=== PATIENT | female | born 2000 | race Caucasian/White ===

== ENCOUNTER → 2020-01-23 | Outpatient (CLI) | payer MEDICAID ==
--- NOTE | 2020-01-23 15:48 | Diagnostic Imaging Report ---
PROCEDURE: US OB SINGLE FETUS <14 WKS. TECHNIQUE: Multiple Real-time grayscale images were obtained over the gravid uterus in various projections. INDICATION: dating. FINDINGS: There is an intrauterine gestational sac containing a pole. The crown-rump length measurement is 7.5 cm, consistent with 13 weeks 5 days gestation. The heart rate was recorded at 163 BPM. No paul-gestational sac hemorrhage is identified. The maternal adnexa are unremarkable. The ovaries are not visualized. No adnexal mass or free fluid is seen. IMPRESSION: Single live IUP of 13 weeks 5 days gestational age. The estimated date of confinement sonographically is 07/25/2020. Dictated by: Dictated on workstation # [id number]
== END ==
LOC: RAD 13:22
PROVIDERS: ATTEND Family Medicine
DX: Z36.9 Encounter for antenatal screening, unspecified (principal); Z3A.13 13 weeks gestation of pregnancy
CPT/HCPCS: 76801

== ENCOUNTER → 2020-02-29 | Outpatient (CLI) | payer MEDICAID ==
--- NOTE | 2020-02-29 15:34 | Diagnostic Imaging Report ---
INDICATION: survey. TECHNIQUE: Multiple real-time grayscale images were obtained over the gravid uterus. COMPARISON: 01/23/2020. FINDINGS: This is single live fetus in a transverse presentation, head to maternal left. heart rate was recorded at 149 bpm. Placenta is anterior. Amniotic fluid volume is normal. Cervical length is 4.2 cm. survey shows kidneys, bladder and stomach to be unremarkable. brain is unremarkable. There is a four-chamber heart. There is a three-vessel cord with normal insertion. spine is unremarkable. Biometrical measurements are as follows: Biparietal 4.16 cm, age 18 weeks 5 days. Head circumference 15.83 cm, age 18 weeks 5 days. Abdominal circumference 14.16 cm, age 19 weeks 4 days. Femur length 3.04 cm, age 19 weeks 3 days. Sonographic estimate age: 19 weeks 1 days. Sonographic estimated date of delivery: 07/24/2020. Estimated Weight: 288 gm (+/- 42 gm). LMP percentile: 76%. heart rate: 149 beats per minute. number: 1 of 1. IMPRESSION: Single live IUP approximately 19 weeks gestational age showing normal interval growth when compared to prior exam. No complicating features are detected. Dictated by: Dictated on workstation # [id number]
== END ==
LOC: RAD 12:59
PROVIDERS: ATTEND Family Medicine
DX: Z36.9 Encounter for antenatal screening, unspecified (principal); Z3A.19 19 weeks gestation of pregnancy
CPT/HCPCS: 76805

== ENCOUNTER → 2020-04-10 | Outpatient (CLI) | payer MEDICAID ==
[2020-04-10 12:25] LABS: HEMATOCRIT 37 % (35-52); MEAN CORPUSCULAR HEMOGLOBIN 31 PG (25-34); MEAN CORPUSCULAR VOLUME 89 FL (80-99); WHITE BLOOD COUNT 13.5 10^3/uL (4.3-11.0)
[2020-04-10 12:26] LABS: BASOPHILS % (AUTO) 0 % (0-10); EOSINOPHILS # (AUTO) 0.2 10^3/uL (0.0-0.3); EOSINOPHILS % (AUTO) 1 % (0-10); LYMPHOCYTES % (AUTO) 15 % (12-44); MEAN CORPUSCULAR HGB CONC 35 G/DL (32-36); MEAN PLATELET VOLUME 9.4 FL (7.4-10.4); MONOCYTES # (AUTO) 0.7 X 10^3 (0.0-1.0); MONOCYTES % (AUTO) 5 % (0-12); NEUTROPHILS # (AUTO) 10.6 X 10^3 (1.8-7.8); NEUTROPHILS % (AUTO) 79 % (42-75); PLATELET COUNT 197 10^3/uL (130-400)
== END ==
LOC: LAB FS 11:55
PROVIDERS: ATTEND Family Medicine
DX: R42 Dizziness and giddiness (principal)
CPT/HCPCS: 36415; 84443; 85025

== ENCOUNTER 2020-07-23 13:56 | Inpatient (IN) | payer MEDICAID ==
[2020-07-23] VITALS (38 sets, daily range): BP systolic 117–167; BP diastolic 65–97
[~2020-07-23] VITALS: Ht 157.5 cm; Wt 87.0 kg
--- NOTE | 2020-07-23 13:47 | NUR ---
KALEB PEDRAZA presented to unit via AMBULATORY from ED, accompanied by S/O , with c/o CTXS . KALEB PEDRAZA weighed, gowned, voided, and to bed. EFHM and TOCO applied, VS taken. KALEB PEDRAZA oriented to bed controls, call light, TV, heat, and A/C controls.
[2020-07-23 14:33] LABS: BILIRUBIN,URINE NEGATIVE (NEGATIVE); CLARITY,URINE CLEAR; COLOR,URINE YELLOW; GLUCOSE, URINE (UA) NEGATIVE (NEGATIVE); KETONES,URINE NEGATIVE (NEGATIVE); LEUKOCYTE ESTERASE ,URINE NEGATIVE (NEGATIVE); NITRITE,URINE NEGATIVE (NEGATIVE); PROTEIN,URINE 3+ (NEGATIVE)
[2020-07-23 14:39] LABS: BACTERIA,URINE NEGATIVE /HPF
[2020-07-23] MEDS ORDERED: D5 LR IV SOLUTION 1,000 ML IV SCH (14:43)
[2020-07-23] MEDS ORDERED: AMPICILLIN FOR IV USE 2,000 MG in WATER (STERILE) FOR INJECTION 14.8 ML IV SCH (14:43)
[2020-07-23] MEDS ORDERED: MINERAL OIL CONCENTRATE 99.9% 15 ML UDC TOP PRN (14:45)
[2020-07-23 15:41] LABS: BASOPHILS % (AUTO) 0 % (0-10); EOSINOPHILS % (AUTO) 0 % (0-10); HEMATOCRIT 35 % (35-52); HEMOGLOBIN 11.4 g/dL (11.5-16.0); LYMPHOCYTES # (AUTO) 2.4 10^3/uL (1.0-4.0); LYMPHOCYTES % (AUTO) 16 % (12-44); MEAN CORPUSCULAR HEMOGLOBIN 26 pg (25-34); MEAN CORPUSCULAR HGB CONC 32 g/dL (32-36); MEAN CORPUSCULAR VOLUME 81 fL (80-99); MEAN PLATELET VOLUME 10.7 fL (9.0-12.2); MONOCYTES # (AUTO) 0.7 10^3/uL (0.0-1.0); MONOCYTES % (AUTO) 5 % (0-12); NEUTROPHILS # (AUTO) 11.9 10^3/uL (1.8-7.8); NEUTROPHILS % (AUTO) 79 % (42-75); PLATELET COUNT 277 10^3/uL (130-400); WHITE BLOOD COUNT 15.1 10^3/uL (4.3-11.0)
[2020-07-23] MEDS ORDERED: fentaNYL 2 mcg/ml BUPIVA 0.125 100 ML ONE (16:47)
[2020-07-23] MEDS ORDERED: LACTATED RINGERS 1,000 ML IV SCH (17:10)
[2020-07-23] MEDS ORDERED: diphenhydrAMINE 50 MG/ML INJ (BENADRYL) IV PRN (17:15)
[2020-07-23] MEDS ORDERED: EPIDURAL (fentaNYL 2 MCG/ML BUPIVA 0.125%)100 ML BAG EPI SCH (17:15)
[2020-07-23] MEDS ORDERED: NALOXONE 0.4 MG/ML 1 ML (NARCAN) VIAL IV PRN ×2 (17:15)
[2020-07-23] MEDS ORDERED: ONDANSETRON 4 MG/2 ML (SDV) Z0FRAN IV PRN (17:15)
[2020-07-23] MEDS ORDERED: METOCLOPRAMIDE INJ 10 MG/2 ML (REGLAN) IV PRN (17:15)
[2020-07-23] MEDS ORDERED: OXYTOCIN PRE-MIX DRIP 500 ML IV SCH ×2 (18:50→21:39)
--- NOTE | 2020-07-23 18:50 | History & Physical-OB ---
OB - Chief Complaint & HPI Date/Time Date of Admission: Date of Admission: Jul 23, 2020 at 14:36 Date seen by a Provider: Jul 23, 2020 Time Seen by a Provider: 18:30 Chief Complaint/History OB-Reason for Admission/Chief: Onset of Labor Hx : 2 Hx Para: 1 Expected Date of Delivery: Jul 26, 2020 Gestational Age in Weeks: 39 Gestational Age in Days: 4 Admission Nurse Assessment Rev: Yes Allergies and Home Medications Allergies Coded Allergies: No Known Drug Allergies (Unverified , 07/23/20) Patient Home Medication List Home Medication List Reviewed: Yes OB - History Hx of Present Care: Yes Ultrasounds: Normal mid trimester US Obstetrical Complications: None Medical Complications: None Obstetrical History Hx : 2 Hx Para: 1 Delivery History Adverse Rxn to Tranfusion: No Patient Past Medical History previously healthy Social History/Family History HIV/AIDS: No Sexually Transmitted Disease: No Alcohol Use: Denies Use Recreational Drug Use: No OB - Admission Exam Physical Exam Vitals: Vital Signs 07/23/20 15:24 Temp 36.6 Pulse 83 Resp 18 Pulse Ox 98 O2 Delivery Room Air HEENT: NCAT Heart: Rhythm Normal Lungs: Clear Abdomen: Gravid Extremities: Normal Reflexes: Normal Cervical Dilatation: 8cm Effacement: 100% Station: -2 Membranes: Ruptured Amniotic Fluid: Clear Heart Rate: 130's Accelerations: Accelerations Present Decelerations: No Decelerations Short Term Variability: Present Flying Instructor Variability: Average (6-25) Contractions on Admission: < 5 Minutes Apart Labs Laboratory Tests Test 07/23/20 13:50 07/23/20 15:00 Range/Units Urine Color YELLOW Urine Clarity CLEAR Urine pH 7.0 5-9 Urine Specific [place] 1.020 1.016-1.022 Urine Protein 3+ H NEGATIVE Urine Glucose (UA) NEGATIVE NEGATIVE Urine Ketones NEGATIVE NEGATIVE Urine Nitrite NEGATIVE NEGATIVE Urine Bilirubin NEGATIVE NEGATIVE Urine Urobilinogen 0.2 < = 1.0 MG/DL Urine Leukocyte Esterase NEGATIVE NEGATIVE Urine RBC (Auto) 1+ H NEGATIVE Urine RBC NONE /HPF Urine WBC NONE /HPF Urine Squamous Epithelial Cells NONE /HPF Urine Crystals NONE /LPF Urine Bacteria NEGATIVE /HPF Urine Casts NONE /LPF Urine Mucus NEGATIVE /LPF Urine Culture Indicated NO White Blood Count 15.1 H 4.3-11.0 10^3/uL Red Blood Count 4.36 3.80-5.11 10^6/uL Hemoglobin 11.4 L 11.5-16.0 g/dL Hematocrit 35 35-52 % Mean Corpuscular Volume 81 80-99 fL Mean Corpuscular Hemoglobin 26 25-34 pg Mean Corpuscular Hemoglobin Concent 32 32-36 g/dL Red Cell Distribution Width 13.0 10.0-14.5 % Platelet Count 277 130-400 10^3/uL Mean Platelet Volume 10.7 9.0-12.2 fL Immature Granulocyte % (Auto) 1 % Neutrophils (%) (Auto) 79 H 42-75 % Lymphocytes (%) (Auto) 16 12-44 % Monocytes (%) (Auto) 5 0-12 % Eosinophils (%) (Auto) 0 0-10 % Basophils (%) (Auto) 0 0-10 % Neutrophils # (Auto) 11.9 H 1.8-7.8 10^3/uL Lymphocytes # (Auto) 2.4 1.0-4.0 10^3/uL Monocytes # (Auto) 0.7 0.0-1.0 10^3/uL Eosinophils # (Auto) 0.0 0.0-0.3 10^3/uL Basophils # (Auto) 0.0 0.0-0.1 10^3/uL Immature Granulocyte # (Auto) 0.1 0.0-0.1 10^3/uL OB - Assessment/Plan/Diagnosis Assessment Assessment: active labor Admission Dx Labor at 39 4/7 wga. GBS positive. Admission Status: Inpatient Order (span 2 midnights) Reason for Inpatient Admission: Labor. Plan Plan: Expectant Management Induction Method: AROM Other Plan Epidural for pain. AROM clear fluid. Ampicillin for GBS. HAILEY FOUNTAIN MD Jul 23, 2020 18:50
[2020-07-23] MEDS: AMPICILLIN FOR IV USE 1,000 MG in WATER (STERILE) FOR INJECTION 7.4 ML IV SCH ×2 (18:51→23:06)
[2020-07-23] MEDS ORDERED: WITCH HAZEL(TUCKS) 40 EA JAR TOP PRN (19:00)
[2020-07-23] MEDS ORDERED: MEASLES,MUMPS,RUBELLA 1 EA INJ SQ ONE (19:00)
[2020-07-23] MEDS ORDERED: BENZOCAINE/MENTHOL (DERMOPLAST) 60 ML CAN TP PRN (19:00)
[2020-07-23] MEDS ORDERED: TETANUS,DIPTH,PERTUSS P/F (BOOSTRIX) 0.5 ML VIAL IM ONE (19:00)
[2020-07-23] MEDS ORDERED: CATHETER FLUSH 10 ML SYR IV SCH ×2 (22:00)
[2020-07-23] MEDS ORDERED: LIDOCAINE/EPI 2% 1:200,00 (XYLOCAINE) 10 ML VIAL ONE (23:46)
[2020-07-24] VITALS (15 sets, daily range): BP systolic 109–146; BP diastolic 62–86
--- NOTE | 2020-07-24 | NUR ---
0000: Pericare provided to patient. New pads placed under her. Fundus massaged. Fundus one under umbilicus. No active bleeding or clots noted. Pt. taken out of stirrups. 0015: Fundus massaged. Fundus one under umbilicus. Minimal bleeding and no clots noted. 0030: Fundus massaged. Fundus one under umbilicus. Minimal bleeding and no clots noted. 0045: Fundus massaged. Fundus at umbilicus. Moderate bleeding and no clots noted. 0100: Fundus massaged. Fundus at umbilicus. Moderate bleeding and no clots noted. 0115: Fundus massaged. Fundus at umbilicus. Minimal bleeding and no clots noted. 0145: Fundus massaged. Fundus at umbilicus. Minimal bleeding and no clots noted.
--- NOTE | 2020-07-24 00:05 | OB Labor & Delivery Record ---
Vag Delivery Note Vag Delivery Note Date of Delivery: 07/23/20 Preoperative Diagnosis: Ruby Braxton is a (19 /Para 2 / 1, Gestational Age (wks)39with [4 days] Postoperative Diagnosis: Same Surgeon: HAILEY FOUNTAIN Project Administrator: [none] Anesthesia: [epidural] Delivery Type: [] Findings: [] Viable [male] infant, apgars [9/10], weight [9 pounds 0 ounces] Lacerations: Intact placenta with 3 vessel cord. No nuchal cord, body cord or shoulder dystocia Estimated Blood Loss: [250] ml Complications: None Condition: Stable Description of Procedure: The patient is a 19 year old female who presented [in labor]. She was admitted and informed consent was obtained. Her labor course was remarkable for [nothing] She progressed to complete dilatation and began to push. She was then set up for delivery. The 's head was delivered atraumatically in the [OA] position. The shoulders and remainder of the infant's body were then delivered without difficulty. Upon delivery, the head was held below the level of the perineum and the mouth and nares were bulb suctioned. The cord was doubly clamped and cut after 60 seconds on maternal abdomen by father of the baby. An intact placenta with 3-vessel cord delivered via [place] and there was found to be minimal bleeding.~ Vigorous fundal massage was performed and the fundus was found to be firm. IV oxytocin was given. Examination of the vagina and perineum revealed a [2nd degree perineal] laceration repaired in the usual fashion with 3-0 vicryl suture. Following the repair, sponge, instrument and needle counts were correct. Mom and baby were both in stable condition in the labor suite. Vitals - Labs Vital Signs - I&O Vital Signs Date Time Temp Pulse Resp B/P (MAP) Pulse Ox O2 Delivery O2 Flow Rate FiO2 07/23/20 23:05 112 18 152/91 (111) 98 Room Air 07/23/20 22:50 114 18 132/90 (104) 98 Room Air 07/23/20 22:35 107 18 139/92 (108) 98 Room Air 07/23/20 22:20 109 18 135/83 (100) 97 Room Air 07/23/20 22:05 107 18 129/85 (100) 98 Room Air 07/23/20 21:50 36.9 103 18 131/78 (95) 97 Room Air 07/23/20 21:35 111 18 135/88 (104) 96 Room Air 07/23/20 21:20 100 18 134/83 (100) 96 Room Air 07/23/20 21:05 100 18 136/85 (102) Room Air 07/23/20 20:50 101 18 138/97 (111) Room Air 07/23/20 20:35 105 18 133/82 (99) Room Air 07/23/20 20:20 107 18 131/70 (90) Room Air 07/23/20 20:05 90 18 133/76 (95) 97 Room Air 07/23/20 19:50 92 18 117/67 (84) 97 Room Air 07/23/20 19:35 88 18 117/74 (88) 97 Room Air 07/23/20 19:20 36.9 103 18 127/91 (103) 100 Room Air 07/23/20 19:05 96 18 124/83 (97) 98 Room Air 07/23/20 18:50 36.7 107 18 126/82 (97) 98 Room Air 07/23/20 18:35 117 18 131/85 (100) 98 Room Air 07/23/20 18:20 103 18 141/78 (99) 98 Room Air 07/23/20 18:00 115 18 142/65 (90) 99 Room Air 07/23/20 17:53 110 18 167/72 (103) Room Air 07/23/20 17:48 18 141/82 (101) Room Air 07/23/20 17:43 100 18 142/82 (102) Room Air 07/23/20 17:40 91 18 140/75 (96) Room Air 07/23/20 17:36 111 18 140/86 (104) Room Air 07/23/20 17:33 97 18 142/77 (98) Room Air 07/23/20 17:29 109 18 150/86 (107) 98 Room Air 07/23/20 17:26 84 18 146/88 (107) 98 Room Air 07/23/20 17:23 97 18 142/83 (102) 97 Room Air 07/23/20 17:20 106 18 151/91 (111) 98 Room Air 07/23/20 17:17 36.6 100 18 145/95 (112) 97 Room Air 07/23/20 15:24 36.6 83 18 98 Room Air 07/23/20 15:21 36.6 83 18 98 Room Air 07/23/20 15:11 81 18 136/84 (101) Room Air I & O 07/24/20 07:00 Intake Total 1022.2 ml Balance 1022.2 ml Labs Laboratory Tests 07/23/20 13:50: Urine Color YELLOW, Urine Clarity CLEAR, Urine pH 7.0, Urine Specific [place] 1.020, Urine Protein 3+H, Urine Glucose (UA) NEGATIVE, Urine Ketones NEGATIVE, Urine Nitrite NEGATIVE, Urine Bilirubin NEGATIVE, Urine Urobilinogen 0.2, Urine Leukocyte Esterase NEGATIVE, Urine RBC (Auto) 1+H, Urine RBC NONE, Urine WBC NONE, Urine Squamous Epithelial Cells NONE, Urine Crystals NONE, Urine Bacteria NEGATIVE, Urine Casts NONE, Urine Mucus NEGATIVE, Urine Culture Indicated NO 07/23/20 15:00: White Blood Count 15.1H, Red Blood Count 4.36, Hemoglobin 11.4L, Hematocrit 35, Mean Corpuscular Volume 81, Mean Corpuscular Hemoglobin 26, Mean Corpuscular Hemoglobin Concent 32, Red Cell Distribution Width 13.0, Platelet Count 277, Mean Platelet Volume 10.7, Immature Granulocyte % (Auto) 1, Neutrophils (%) (Auto) 79H, Lymphocytes (%) (Auto) 16, Monocytes (%) (Auto) 5, Eosinophils (%) (Auto) 0, Basophils (%) (Auto) 0, Neutrophils # (Auto) 11.9H, Lymphocytes # (Auto) 2.4, Monocytes # (Auto) 0.7, Eosinophils # (Auto) 0.0, Basophils # (Auto) 0.0, Immature Granulocyte # (Auto) 0.1 HAILEY FOUNTAIN MD Jul 24, 2020 00:05
[2020-07-24] MEDS: IBUPROFEN 600 MG (MOTRIN) TAB PO SCH ×4 (01:05→20:28)
--- NOTE | 2020-07-24 02:05 | NUR ---
Nurse at pt bedside to take pt to bathroom and transfer to post room. Pt. is currently nursing baby. Pt. will call out when is done nursing.
--- NOTE | 2020-07-24 02:40 | NUR ---
Pt. up to bathroom with nurse assist. Pt. voided with ease. Pad and underwear put on. Pt. instructed on pericare. Pt. tolerated well.
[2020-07-24] MEDS: ACETAMINOPHEN 500 MG TAB (TYLENOL) PO SCH ×3 (03:05→17:34)
[2020-07-24 07:19] LABS: BASOPHILS # (AUTO) 0.1 10^3/uL (0.0-0.1); BASOPHILS % (AUTO) 0 % (0-10); EOSINOPHILS # (AUTO) 1.4 10^3/uL (0.0-0.3); EOSINOPHILS % (AUTO) 7 % (0-10); HEMATOCRIT 30 % (35-52); HEMOGLOBIN 9.8 g/dL (11.5-16.0); LYMPHOCYTES # (AUTO) 2.3 10^3/uL (1.0-4.0); LYMPHOCYTES % (AUTO) 11 % (12-44); MEAN CORPUSCULAR HEMOGLOBIN 27 pg (25-34); MEAN CORPUSCULAR HGB CONC 33 g/dL (32-36); MEAN CORPUSCULAR VOLUME 81 fL (80-99); MEAN PLATELET VOLUME 10.3 fL (9.0-12.2); MONOCYTES # (AUTO) 1.1 10^3/uL (0.0-1.0); MONOCYTES % (AUTO) 5 % (0-12); NEUTROPHILS # (AUTO) 15.6 10^3/uL (1.8-7.8); NEUTROPHILS % (AUTO) 76 % (42-75); PLATELET COUNT 254 10^3/uL (130-400); WHITE BLOOD COUNT 20.5 10^3/uL (4.3-11.0)
--- NOTE | 2020-07-24 08:09 | Anesthesia-Regional Post-Op ---
Regional Patient Condition Mental Status: Alert, Oriented x3 Circulation: Same as Pre-Op Headache: Absent Sensation: Full Recovery Motor Block: Absent Post Op Complications Complications None Follow Up Care/Instructions Patient Instructions None needed. Anesthesia/Patient Condition Patient is doing well, no complaints, stable vital signs, no apparent adverse anesthesia problems. No complications reported per nursing. RONNA HUNTER CRNA Jul 24, 2020 08:09
--- NOTE | 2020-07-24 11:07 | NUR ---
PT REQUESTING PAIN MEDS FOR ABDOMINAL CRAMPING, SCHEDULED TYLENOL GIVEN PO.
--- NOTE | 2020-07-24 12:51 | Progress Note ---
Subjective Subjective Date Seen by Provider: Jul 24, 2020 Time Seen by Provider: 12:10 Nursing well. Pain controlled. No complaints. Objective Exam Vital Signs Vital Signs - First Documented 07/23/20 07/23/20 15:11 15:21 Temp 36.6 Pulse 81 Resp 18 B/P (MAP) 136/84 (101) Pulse Ox 98 O2 Delivery Room Air Capillary Refill : Less Than 3 Seconds General Appearance: No Apparent Distress, WD/WN Respiratory: Chest Non Tender Cardiovascular: Regular Rate, Rhythm Results Lab Laboratory Tests 07/23/20 13:50: Urine Color YELLOW, Urine Clarity CLEAR, Urine pH 7.0, Urine Specific [place] 1.020, Urine Protein 3+H, Urine Glucose (UA) NEGATIVE, Urine Ketones NEGATIVE, Urine Nitrite NEGATIVE, Urine Bilirubin NEGATIVE, Urine Urobilinogen 0.2, Urine Leukocyte Esterase NEGATIVE, Urine RBC (Auto) 1+H, Urine RBC NONE, Urine WBC NONE, Urine Squamous Epithelial Cells NONE, Urine Crystals NONE, Urine Bacteria NEGATIVE, Urine Casts NONE, Urine Mucus NEGATIVE, Urine Culture Indicated NO 07/23/20 15:00: White Blood Count 15.1H, Red Blood Count 4.36, Hemoglobin 11.4L, Hematocrit 35, Mean Corpuscular Volume 81, Mean Corpuscular Hemoglobin 26, Mean Corpuscular Hemoglobin Concent 32, Red Cell Distribution Width 13.0, Platelet Count 277, Mean Platelet Volume 10.7, Immature Granulocyte % (Auto) 1, Neutrophils (%) (Auto) 79H, Lymphocytes (%) (Auto) 16, Monocytes (%) (Auto) 5, Eosinophils (%) (Auto) 0, Basophils (%) (Auto) 0, Neutrophils # (Auto) 11.9H, Lymphocytes # (Auto) 2.4, Monocytes # (Auto) 0.7, Eosinophils # (Auto) 0.0, Basophils # (Auto) 0.0, Immature Granulocyte # (Auto) 0.1 07/24/20 07:15: White Blood Count 20.5H, Red Blood Count 3.66L, Hemoglobin 9.8L, Hematocrit 30L, Mean Corpuscular Volume 81, Mean Corpuscular Hemoglobin 27, Mean Corpuscular Hemoglobin Concent 33, Red Cell Distribution Width 13.2, Platelet Count 254, Mean Platelet Volume 10.3, Immature Granulocyte % (Auto) 1, Neutrophils (%) (Auto) 76H, Lymphocytes (%) (Auto) 11L, Monocytes (%) (Auto) 5, Eosinophils (%) (Auto) 7, Basophils (%) (Auto) 0, Neutrophils # (Auto) 15.6H, Lymphocytes # (Auto) 2.3, Monocytes # (Auto) 1.1H, Eosinophils # (Auto) 1.4H, Basophils # (Auto) 0.1, Immature Granulocyte # (Auto) 0.1 Assessment/Plan Assessment/Plan Admission Status: Inpatient Order (span 2 midnights) Reason for Inpatient Admission: day 1 from at 39 4/7 wga. Assessment and Plan Pain controlled. Nursing. Home in AM. Clinical Quality Measures DVT/VTE Risk/Contraindication: Risk Factor Score Per Nursin RFS Level Per Nursing on Admit: 1=Low/No VTE PPX HAILEY FOUNTAIN MD Jul 24, 2020 12:51
[2020-07-24] MEDS: DOCUSATE SODIUM 100 MG (COLACE) CAP PO SCH (20:28)
[2020-07-25] MEDS: ACETAMINOPHEN 500 MG TAB (TYLENOL) PO SCH ×2 (02:02→09:46)
[2020-07-25 03:18] VITALS: BP 126/81
[2020-07-25] MEDS: IBUPROFEN 600 MG (MOTRIN) TAB PO SCH ×2 (03:19→09:45)
[2020-07-25] MEDS ORDERED: IBUP-844 PO (07:40)
--- NOTE | 2020-07-25 07:41 | Discharge Summary ---
Discharge Inst-Women's Serv Depart Medications New, Converted or Re-Newed RX: Transmitted to Pharmacy Follow Up/Instructions Goal/Follow Up: Dr. Fountain in 6 weeks. Activity Activity: Activity as Tolerated Driving Instructions: You May Drive NO SMOKING: NO SMOKING Nothing Inside Vagina: No Douching, No [place], No Tampons Diet Discharge Diet: No Restrictions Symptoms to Report to : Fever Over 101 Degrees F, Vaginal Bleeding Increase For Any Problems or Questions: Contact Your Physician HAILEY FOUNTAIN MD Jul 25, 2020 07:41
--- NOTE | 2020-07-25 07:44 | Discharge Summary ---
Diagnosis/Chief Complaint Date of Admission Jul 23, 2020 at 14:36 Date of Discharge Jul 25, 2020 Admission Diagnosis Admission Diagnosis Labor at 39 4/7 wga. Discharge Diagnosis vaginal delivery at 39 5/7 wga. Problems/Diagnosis: (1) care following vaginal delivery Assessment & Plan: Uneventful course. Discharge Summary-OBS Procedures None. Discharge Physical Examination Allergies: Coded Allergies: No Known Drug Allergies (Unverified , 07/23/20) Vitals & I&Os Vital Sign - Last 12Hours Date Time Temp Pulse Resp B/P (MAP) Pulse Ox O2 Delivery O2 Flow Rate FiO2 07/25/20 03:18 37.0 90 18 126/81 (96) 96 Room Air General Appearance: Alert, Oriented X3 HEENT: Atraumatic Respiratory: Clear to Auscultation Cardiovascular: Regular Rate Abdominal: Normal Bowel Sounds Extremities: Other (3+ edema bilaterally) Neuro: Normal Gait Psych/Mental Status: Mental Status NL Hospital Course Was the Problem List Reviewed?: Yes Uneventful course. Discharge Instructions to patient/family Please see electronic discharge instructions given to patient. Discharge Medications Reviewed and agree with Discharge Medication list on patient's Discharge Instruction sheet Clinical Quality Measures DVT/VTE Risk/Contraindication: Risk Factor Score Per Nursin RFS Level Per Nursing on Admit: 1=Low/No VTE PPX HAILEY FOUNTAIN MD Jul 25, 2020 07:44
[2020-07-25 09:45] VITALS: BP 129/90
[2020-07-25] MEDS: DOCUSATE SODIUM 100 MG (COLACE) CAP PO SCH (09:45)
--- NOTE | 2020-07-25 10:45 | NUR ---
Home instructions given - verbalized understanding. Pt refused all vaccines.
--- NOTE | 2020-07-25 12:15 | NUR ---
To exit via wheelchair with in car seat and in mom's lap. Accompanied by Kartik and elvira RN
== END 2020-07-25 12:15 | disposition home or self-care (01) | DRG 807 ==
LOC: WSo 13:56 → LDRP 13:59 → WSo 14:36 → LDRP 07-24 03:00
PROVIDERS: ADMIT Family Medicine; ATTEND Family Medicine
PROC: 10E0XZZ Delivery of Products of Conception, External Approach (ICD-10-PCS; principal; 2020-07-24)
DX: O70.1 Second degree perineal laceration during delivery (principal); Z37.0 Single live birth; Z3A.39 39 weeks gestation of pregnancy
CPT/HCPCS: 36415; 81000; 85025; 86850; 86900; 86901; 99212

== ENCOUNTER → 2021-08-22 | Outpatient (CLI) | payer MEDICAID ==
[~2021-08-22] MED LIST: IBUP-844 PO
== END ==
LOC: LABNPT 15:09
PROVIDERS: ATTEND Registered Nurse Emergency
DX: R07.0 Pain in throat (principal)
CPT/HCPCS: 87070

== ENCOUNTER → 2023-04-02 | Outpatient (CLI) | payer MEDICAID | LOC: LABNPT 12:19 | PROVIDERS: ATTEND Registered Nurse Emergency | DX: Z01.419 Encounter for gynecological examination (general) (routine) without abnormal findings (principal); G44.52 New daily persistent headache (NDPH); G44.219 Episodic tension-type headache, not intractable; R53.83 Other fatigue | CPT/HCPCS: 87210; 87491; 87591 ==